=== PATIENT | female | born 1970 | race American Indian/Alaskan Native ===

== ENCOUNTER 2021-12-10 08:30 | Day surgery (SDC) | payer OTHER ==
[~2021-12-10 08:30] MED LIST: SODIUM CHLORIDE 0.9% 1000 ML 1,000 ML IV SCH
--- NOTE | 2021-12-10 11:48 | Anesthesia Day of Surgery ---
Anesthesia Day of Surgery - Day of Surgery Patient Examined: Yes Patient H&P Reviewed: Yes Patient is NPO: Yes
--- NOTE | 2021-12-10 11:48 | Anesthesia Consultation ---
Anesthesia Consult and Med Hx Date of service: 12/10/21 - Airway Anesthetic Teeth Evaluation: Good ROM Head & Neck: Adequate Mental/Hyoid Distance: Adequate Mallampati Class: Class III Intubation Access Assessment: Possibly Difficult - Pre-Operative Health Status ASA Pre-Surgery Classification: ASA3 Proposed Anesthetic Plan: MAC - Pulmonary Hx Smoking: Yes (4 black&mild/day x 18 years) Hx Sleep Apnea: Yes (recently diagnosed) - Cardiovascular System Hx Hypertension: Yes - Gastrointestinal Hx Ulcer: Yes (GASTRIC ULCER) Hx Gastroesophageal Reflux Disease: Yes (dysphagea) - Endocrine Hx Non-Insulin Dependent Diabetes: Yes - Other Systems Hx Obesity: Yes (BMI 37.1)
[2021-12-10] MEDS ORDERED: ONDANSETRON 4 MG/2 ML INJ ONE (12:21)
[2021-12-10] MEDS ORDERED: fentaNYL 100 MCG/2 ML INJ ONE (12:21)
[2021-12-10] MEDS ORDERED: propofoL 200 MG/20 ML VIAL IV ONE ×2 (12:22→12:32)
--- NOTE | 2021-12-10 12:48 | Procedure Note ---
Date of procedure: 12/10/21 Pre-op diagnosis: Dysphagia Post-op diagnosis: other (Mild, benign esophagealStenosis (s/p Balloon Dilation)/ Mild to Moderate Erosive Esophagitis/ R/O Eosinophilic Esophagitis/ Gastritis/ Gastroparesis/ Patent Pylorus/ P/H/O Gastric Ulcer (none now)) Procedure: EGD with Cold biopsy and Esophageal Balloon Dilation (20 mm balloon) Anesthesia: MAC Surgeon: ZEFERINO JONES Estimated blood loss: minimal Pathology: list Specimen disposition: to lab Condition: stable Disposition: same day (Treat with PPI and reglan. Avoid aspirin and NSAID for 5 days, otherwise resume previous medication and F/U in 1 to 2 weeks ([phone]).)
--- NOTE | 2021-12-10 13:21 | Operative Report ---
DATE OF SURGERY: 12/10/2021 INDICATIONS: This is a 51-year-old -[place] female with an underlying history of diabetes mellitus type 2, who has lately been having some problems with dysphagia. She recently had some neck surgery done. DESCRIPTION OF PROCEDURE: Procedure was done after getting informed consent with MAC anesthesia. The instrument was passed through the hypopharynx into the esophagus, which showed [id number] distal erosive esophagitis and mild benign esophageal stenosis as well. The distal esophagus was dilated at the end of the procedure with a 20 mm balloon that was maintained for a minute. Biopsy was done from the distal esophagus to assess for the severity of the erosive esophagitis as well as from the mid esophagus to assess for any eosinophilic esophagitis. Stomach showed gastritis. The patient has a prior history of gastric ulcer. No ulcers were noted within the gastric lumen in the straight or the retroverted view. There was evidence of gastroparesis, possibly secondary to the diabetes mellitus with some gastric bezoar and the pylorus is patent. The duodenum in the first and second portion appeared normal. Biopsy was done from the gastric antrum, gastric body and angular incisura to rule out for H. pylori and atrophic gastritis. ASSESSMENT: Dysphagia secondary to mild benign esophageal stenosis, status post balloon dilation using a 20 mm balloon, mild to moderate erosive esophagitis, rule out eosinophilic esophagitis, prior history of gastric ulcer, no gastric ulcers noted at present. Diabetic gastroparesis with patent pylorus and gastritis. PLAN: To treat the patient with PPI as well as Reglan. Have the patient avoid aspirin and aspirin-related products for the next few days and to follow up in the office in 1-2 weeks' time. Procedure was done in the GI lab with assistance of the GI lab team, which included the GI nurse, the automotive glass technician and with assistance of Anesthesia. TID: [id number] RECEIPT: [id number] PAMELA/TYRESE
[2021-12-10 14:22] VITALS: BP 109/62
--- NOTE | 2021-12-10 15:05 | Post Anesthesia Evaluation ---
- Post Anesthesia Evaluation Patient Participated: Yes Airway Patent: Yes Stable Respiratory Function: Yes Nausea/Vomiting: No Temp > 96.8F: Yes Pain Manageable: Yes Adequeate Hydration: Yes Anesthesia Complications: No Block Receding Appropriately: Not Applicable Patient on Ventilator: No
== END 2021-12-10 13:15 | disposition home or self-care (01) ==
LOC: GIO 08:30
DX: R13.10 Dysphagia, unspecified (principal); K22.2 Esophageal obstruction; K21.00 Gastro-esophageal reflux disease with esophagitis, without bleeding; K29.70 Gastritis, unspecified, without bleeding; E11.43 Type 2 diabetes mellitus with diabetic autonomic (poly)neuropathy; K31.84 Gastroparesis; F17.210 Nicotine dependence, cigarettes, uncomplicated; I10 Essential (primary) hypertension; E66.9 Obesity, unspecified; Z79.899 Other long term (current) drug therapy; Z88.0 Allergy status to penicillin; Z88.8 Allergy status to other drugs, medicaments and biological substances; Z68.37 Body mass index [BMI] 37.0-37.9, adult
CPT/HCPCS: 43239; 43249; 82962; 88305; 88342; C1726; J2405; J2704; J3010; J7030